=== PATIENT | female | born 1990 | race Hispanic/Latino ===

== ENCOUNTER → 2024-06-10 | Outpatient (CLI) | payer MEDICAID ==
[2024-06-10 10:58] LABS: BASOPHILS # (AUTO) 0.04 K/uL (0.00-0.20); BASOPHILS % (AUTO) 0.4 % (0.0-5.0); EOSINOPHILS # (AUTO) 0.19 K/uL (0.00-0.70); EOSINOPHILS % (AUTO) 1.9 % (0.0-8.0); IMMATURE GRANULOCYTE ABSOLUTE 0.04 K/uL (0-1); LYMPHOCYTES # (AUTO) 2.7 K/uL (1.0-4.8); LYMPHOCYTES % (AUTO) 26.7 % (21.0-51.0); MEAN CORPUSCULAR HEMOGLOBIN 28.8 pg (27.0-33.0); MEAN CORPUSCULAR HGB CONC 32.7 g/dL (32.0-36.0); MEAN CORPUSCULAR VOLUME 88.2 fL (79-99); MONOCYTES # (AUTO) 0.5 K/uL (0.1-1.0); MONOCYTES % (AUTO) 4.9 % (3.0-13.0); NEUTROPHILS # (AUTO) 6.7 K/uL (1.8-7.7); NEUTROPHILS % (AUTO) 65.7 % (40.0-77.0); PLATELET COUNT (AUTO) 382 K/uL (130-400); RED BLOOD CELL COUNT(AUTO) 4.65 MIL/uL (4.00-5.50); RED CELL DISTRIBUTION WIDTH 13.3 % (11.0-15.5); WHITE BLOOD COUNT (AUTO) 10.1 K/uL (4.8-10.8)
[2024-06-10 10:59] LABS: HEMOGLOBIN A1C 5.4 % (4.0-6.0)
[2024-06-10 11:29] LABS: ALANINE AMINOTRANSFERASE 26 U/L (12-78); ALBUMIN 3.7 g/dL (3.5-5.0); ASPARTATE AMINOTRANSFERASE 17 U/L (10-37); BILIRUBIN,TOTAL 0.5 mg/dL (0.2-1.0); CARBON DIOXIDE 29 mmol/L (21-32); CHLORIDE 106 mmol/L (101-111); CHOLESTEROL 181 mg/dL (<200); CREATININE 0.5 mg/dL (0.5-1.0); GLOMERULAR FILTR. RATE CALC 128 mL/min (>90); GLUCOSE,RANDOM 85 mg/dL (70-105); HDL CHOLESTEROL 57 mg/dL (35-85); LDL DIRECT 113 mg/dL (0-99); POTASSIUM 3.9 mmol/L (3.5-5.1); SODIUM SERUM 141 mmol/L (136-145); T4 (THYROXINE) 7.3 ug/dL (4.7-13.3); THYROID STIMULATING HORMONE 1.47 uIU/mL (0.36-3.74); TRIGLYCERIDES 59 mg/dL (30-200); UREA NITROGEN, BLOOD 15 mg/dL (7-18)
--- NOTE | 2024-06-10 11:57 | EKG ---
[facility] Test Date: 2024-06-10 Test Time: 12:24:40 Pat Name: LAZ OLIVER Department: LAB Room: Gender: F Director Public Policy: [id number] : 1990 Requested By: KIMBERLEE NEGRO Order Number: [id number] Reading MD: Kenny Garcia Measurements Intervals [place] Rate: 78 P: 58 CA: 145 QRS: 39 QRSD: 93 T: 33 QT: 373 QTc: 427 Interpretive Statements Sinus rhythm No previous ECG available for comparison Electronically Signed On 06-10-2024 19:20:03 ZONING ASSISTANT by Kenny Garcia Please click the below link to view image of tracing.
--- NOTE | 2024-06-10 11:59 | HMCIMG ---
CHEST 1VW REASON: PRE OP COMPARISON: None. FINDINGS: Single view of the chest was obtained. Lungs are clear. Heart size is normal. There is no pulmonary vascular congestion. Mediastinum and bony thorax appear unremarkable. IMPRESSION: 1. Normal single view chest x-ray.
[2024-06-11 07:14] LABS: INSULIN, RANDOM OR FASTING 11.6 uIU/mL (2.6-24.9)
== END | disposition home or self-care (01) ==
LOC: LAB 09:23
PROVIDERS: ATTEND Surgery
DX: Z01.818 Encounter for other preprocedural examination (principal); K76.0 Fatty (change of) liver, not elsewhere classified; E78.00 Pure hypercholesterolemia, unspecified; G47.33 Obstructive sleep apnea (adult) (pediatric); K21.9 Gastro-esophageal reflux disease without esophagitis; E66.01 Morbid (severe) obesity due to excess calories
CPT/HCPCS: 36415; 71045; 80053; 80061; 82306; 82607; 82746; 83036; 83525; 83540; 83735; 84207; 84425; 84436; 84443; 84446; 84481; 84590; 84630; 85025; 93005

== ENCOUNTER → 2024-06-10 | Outpatient (CLI) | payer OTHER ==
[~2024-06-10] VITALS: Ht 27.9 cm; Wt 95.7 kg
--- NOTE | 2024-06-10 13:24 | NUR ---
BARIATRIC INITIAL ASSESSMENT VISIT 1 OF 6 Wt: 211 lbs DOS: 06/10/24 Pt seeking bariatric procedure to aid in wt loss and improve medical health conditions. Pt reported she heard of procedure from a friend, takes pre-santiago vitamin, has 4 children, has a 3 month year old baby, 2 children are picky eaters, stopped seeing MD in [place], sees PCP 1x per year, sees gyno every 3 months, continues to breastfeed, goes grocery shopping, mainly cooks, has struggled with wt since having children, both parents struggle with wt, CBW has been consistent for a year, eats ~3 meals per day + 1-2 snacks, drinks soda 2x per day, sweets 2x per day, fast food 3x per week, takes 15-30 mins to eat, struggles with stress eating, is not dx with anxiety or depression, has referral to therapist, no plan to become , works as a provider, 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 conducted 24 hr recall: Breakfast: 1 flour tortilla + coffee with sugar and creamer + egg + ham Lunch: spaghetti + grilled chicken+ regular coke Dinner: 3 slices of pizza + orange juice Snack(s): turkey and cheese sandwich + regular coke RD reviewed portion sizes with pt, reviewed healthy plate, informed Pt of importance of protein intake, demonstrated DM chart, reviewed carbohydrate sources and carbohydrate counting, provided and an estimate for estimated carbohydrate intake per day. Pt completed wt management program diet readiness questionnaire. Results are as follows: Section 1: Goals and Attitudes. Score of 23.You may be close to being ready to begin a program but should think about ways to boost your preparedness before you begin. Sections 2: Hunger and Eating cues. Score 11. Some or most of your eating may be in response to thinking about food or exposing yourself to temptations to eat. Think of ways to minimize your exposure to temptations, so that you eat only in response to physical hunger. Section 3: Control over Eating. Score N/A Section 4: Octavia Eating and Purging: Score N/A Section 5: Emotional Eating: N/A Section 6: Exercise Patterns and Attitudes: Score. N/A Patient did not answer questions. Goals Established: -decrease carbonation -walking 10 min 3x per week -continue MVI QD Pt in agreement with goals and is aware she will need to cut carbonated beverages, sweets and caffeine prior to surgery. Recommended for Pt to complete visits with Dietitian to prepare for bariatric procedure. Thank you for this visit. Addendum: 06/10/24 at [address] Amended: Links added.
== END | disposition home or self-care (01) ==
LOC: EDUNIT# 09:00 → DTH 09:41
PROVIDERS: ATTEND Surgery
DX: E78.00 Pure hypercholesterolemia, unspecified (principal); M19.91 Primary osteoarthritis, unspecified site; K21.9 Gastro-esophageal reflux disease without esophagitis; K76.0 Fatty (change of) liver, not elsewhere classified; E66.01 Morbid (severe) obesity due to excess calories; Z68.41 Body mass index [BMI] 40.0-44.9, adult
CPT/HCPCS: 97802

== ENCOUNTER → 2024-07-08 | Outpatient (CLI) | payer OTHER ==
--- NOTE | 2024-07-08 12:11 | NUR ---
BARIATRIC FOLLOW UP NOTE VISIT 2 OF 6 Wt: 214 LBS DOS: 07/08/24 Baby present during visit. Upon follow up visit, pt presents with a 3 lb wt gain. Pt reported she is in her menstrual cycle, cut down on soda and caffeine, walks 3x per week for 30 mins, straw training, no water training, no protein supplements, has been purchasing zero sugar products. RD conducted 24 hr food recall. Breakfast: breakfast sandwich + water Lunch: chicken + coke zero Dinner: chicken + water S: cinnamon roll, sandwich RD reviewed simple CHO and complex CHO intake, discussed labs, encouraged pt to decrease soft drink (even sugar free) consumption secondary to carbonation and caffeine, pt verbalized understanding. RD and pt established goals for next month: -walking 45 min 3x per week -continue MVI QD -water training Thank you for this visit. Addendum: 07/08/24 at [address] Amended: Links added.
== END | disposition home or self-care (01) ==
LOC: EDUNIT# 07-01 09:00 → DTH 10:44
PROVIDERS: ATTEND Surgery
DX: E66.01 Morbid (severe) obesity due to excess calories (principal); M19.91 Primary osteoarthritis, unspecified site; K21.9 Gastro-esophageal reflux disease without esophagitis; G47.33 Obstructive sleep apnea (adult) (pediatric); E78.00 Pure hypercholesterolemia, unspecified; K76.0 Fatty (change of) liver, not elsewhere classified; Z71.3 Dietary counseling and surveillance
CPT/HCPCS: 97803

== ENCOUNTER → 2024-08-08 | Outpatient (CLI) | payer MEDICAID ==
[2024-08-08 21:50] VITALS: PULSE 94; RESP 20
[2024-08-08 22:30] VITALS: PULSE 94; RESP 18
[2024-08-08 23:00] VITALS: PULSE 90; RESP 20
[2024-08-08 23:30] VITALS: PULSE 92; RESP 18
[2024-08-09] VITALS (10 sets, daily range): PULSE 88–98; RESP 14–20
== END | disposition home or self-care (01) ==
LOC: SLP 20:00
PROVIDERS: ATTEND Internal Medicine Pulmonary Disease
DX: G47.33 Obstructive sleep apnea (adult) (pediatric) (principal); R06.83 Snoring; R53.83 Other fatigue; E66.9 Obesity, unspecified; G47.10 Hypersomnia, unspecified; R00.0 Tachycardia, unspecified
CPT/HCPCS: 95811

== ENCOUNTER → 2024-08-10 | Outpatient (CLI) | payer OTHER ==
--- NOTE | 2024-08-10 09:31 | NUR ---
BARIATRIC FOLLOW UP NOTE VISIT 3 OF 6 Wt: 213 LBS DOS: 08/10/24 Baby present during visit. Communicated in Wolof. Upon follow up visit, pt presents with a ~1 lb wt loss. Pt reported she decreased caffeine, reduced soda consumption, in her menstrual cycle, cutting off straw use, zero sugar products, continues to breast feeding, pending gallbladder procedure, water training, continues pre-santiago QD. RD conducted 24 hr food recall. Breakfast: 1 quesadilla+ tea Lunch: salad + romero lite Dinner: 3 slices of pizza + 1/2 cinnamon roll + zero sugar coke RD reviewed meal prepping, provided various ideas for meal prepping, encouraged pt to decrease soft drink (even sugar free) consumption secondary to carbonation and caffeine, pt verbalized understanding. RD and pt established goals for next month: -continue pre- -continue walking 3x per week for ~ 1 hr -protein supplement QD Thank you for this visit Addendum: 08/10/24 at [address] Amended: Links added.
== END | disposition home or self-care (01) ==
LOC: EDUNIT# 07-29 09:00 → DTH 08:31
PROVIDERS: ATTEND Surgery
DX: E66.01 Morbid (severe) obesity due to excess calories (principal); M19.91 Primary osteoarthritis, unspecified site; E78.00 Pure hypercholesterolemia, unspecified; K21.9 Gastro-esophageal reflux disease without esophagitis; K76.0 Fatty (change of) liver, not elsewhere classified; Z68.41 Body mass index [BMI] 40.0-44.9, adult; Z71.3 Dietary counseling and surveillance
CPT/HCPCS: 97803

== ENCOUNTER → 2024-09-09 | Outpatient (CLI) | payer OTHER ==
--- NOTE | 2024-09-09 11:07 | NUR ---
BARIATRIC FOLLOW UP NOTE VISIT 4 OF 6 Wt: 213 LBS DOS: 09/09/24 Communicated in [place]. Baby present during visit. Upon follow up visit, pt presents with no wt change. Pt reported she finished QD, water training, having SF products, increased fiber intake, no protein supplements, walks 3x per week for 45 min, has been parking further away to walk more. RD conducted 24 hr food recall. Breakfast: coffee Lunch: chicken + spinach + zucchini + mashed potato Dinner: meat + rice S: susanallo RD reviewed protein, calcium, and vit. D importance + requirements, encouraged pt to decrease soft drink (even sugar free) consumption secondary to carbonation and caffeine, pt verbalized understanding. RD and pt established goals for next month: -balanced meals -protein shake QD -walking 4x per week for 45 min Thank you for this visit Addendum: 09/09/24 at [address] Amended: Links added.
== END | disposition home or self-care (01) ==
LOC: EDUNIT# 08-26 09:00 → DTH 10:33
PROVIDERS: ATTEND Surgery
DX: E66.01 Morbid (severe) obesity due to excess calories (principal); I10 Essential (primary) hypertension; G47.33 Obstructive sleep apnea (adult) (pediatric); M19.91 Primary osteoarthritis, unspecified site; K21.9 Gastro-esophageal reflux disease without esophagitis; K76.0 Fatty (change of) liver, not elsewhere classified; E78.00 Pure hypercholesterolemia, unspecified; Z68.41 Body mass index [BMI] 40.0-44.9, adult; Z71.3 Dietary counseling and surveillance
CPT/HCPCS: 97803